=== PATIENT | male | born 1955 | race African-American/Black ===

== ENCOUNTER 2022-03-26 16:54 | Emergency (ER) | payer MEDICARE, SELFPAY ==
[2022-03-26] VITALS (13 sets, daily range): BP systolic 120–150; BP diastolic 77–89; PULSE 62–100; RESP 13–31; TEMP 37.2; O2SAT 90–98
--- NOTE | ~2022-03-26 | XR_ITS ---
EXAMINATION: XR chest 1V portable INDICATION: Cough and fever TECHNIQUE: Portable AP chest at 1831 hours COMPARISON: None available FINDINGS: There are minimal airspace opacities of the left lung base. No pleural effusion or pneumoth orax. The cardiomediastinal silhouette is normal. IMPRESSION: 1. Interval left basilar airspace opacity, consistent with atelectasis versus pneumonia. Reviewed, dictated and finalized at location [facility] IMPRESSION: 1. Interval left basilar airspace opacity, consistent with atelectasis versus p neumonia.
[2022-03-26 17:52] LABS: Influenza A QL RT-PCR Positive (Negative); Influenza B QL RT-PCR Negative (Negative); SARS-CoV-2 RNA PCR Negative
[2022-03-26 20:08] LABS: Basophils Absolute Auto 0.1 K/mm3 (0.0-0.1); Basophils Percent Auto 1.1 % (0.2-1.2); Eosinophils Percent Auto 0.5 % (0-4.4); Hematocrit 42.6 % (42.0-52.0); Hemoglobin 14.7 g/dL (14.0-18.0); Immature Granulocyte Absolute 0.01 K/mm3 (0.00-0.031); Immature Granulocyte Percent A 0.2 % (0-0.5); Lymphocytes Absolute Auto 0.36 K/mm3 (0.9-3.2); Lymphocytes Percent Auto 8.2 % (18.3-44.2); Mean Corpuscular HGB Conc 34.5 g/dl (32-36); Mean Corpuscular Hemoglobin 30.3 pg (26-34); Mean Corpuscular Volume 87.8 fl (80-100); Mean Platelet Volume 10.5 fl (7.4-10.4); Monocytes Absolute Auto 0.4 K/mm3 (0.1-0.6); Monocytes Percent Auto 8.7 % (2.6-8.5); Neutrophils Absolute Auto 3.6 K/mm3 (1.3-6.7); Neutrophils Percent Auto 81.3 % (45.5-73.1); Platelet Count Result 178 k/mm3 (150-375); Red Blood Count 4.85 M/mm3 (4.6-6.20); Red Cell Distribution Width 12.9 % (11.5-14.5); White Blood Count 4.4 K/mm3 (4.5-10.0)
--- NOTE | 2022-03-26 20:21 | ED.FEVER ---
HPI - Fever General Chief Complaint: Fever Stated Complaint: fever, fatigue Time Seen by Provider: 03/26/22 18:29 Source: patient Mode of arrival: ambulatory History of Present Illness HPI Narrative: 66-year-old male with history of bronchitis and hypertension presents today with complaints of fever and malaise. Patient denies any other symptoms except for a dry cough every once while. He states he feels okay except for he is super tired. Patient denies congestion, sore throat, nausea, vomiting but did start with some diarrhea since he has been here. Patient denies any known sick contacts. Patient's states patient with fever of 101 at home. Related Data Allergies Allergy/AdvReac Type Severity Reaction Status Date / Time acetaminophen [From Percocet] Allergy Rash Verified 03/26/22 18:35 oxycodone [From Percocet] Allergy Rash Verified 03/26/22 18:35 Review of Systems Review of Systems: CONSTITUTIONAL: Denies fever, chills, or sweats. Positive for malaise ENT: Denies rhinorrhea, congestion, sore throat, or otalgia. CARDIOVASCULAR: Denies chest pain, palpitations, or edema. RESPIRATORY: Denies cough or dyspnea. GASTROINTESTINAL: Denies abdominal pain, nausea, vomiting. Diarrhea since coming to the ER. GENITOURINARY: Denies dysuria or hematuria. SKIN: Denies rash or itching. MUSCULOSKELETAL: Denies back pain, joint pain, or myalgia. NEUROLOGIC: Denies headache, numbness, dizziness, or weakness. [facility] Family History Family History (Updated 05/27/18 @ 09:30 by DOCTOR UNKNOWN) Sibling Family history of malignant neoplasm Mother Family history of congestive heart failure Social History Social History Smoking status: Never smoker Alcohol intake: never Course Reevaluation(s) Reevaluation #1: Patient's oxygen level 94% on room air after DuoNeb. Patient states he is feeling better. Patient wants to go home. Will discharge patient home plan follow-up with primary if needed and return with any new or worsening concerns. Date: 03/26/22 Time: 22:45 Vital Signs Vital signs: Vital Signs Temperature 99.0 F 03/26/22 17:00 Pulse Rate 78 03/26/22 17:00 Respiratory Rate 18 03/26/22 17:00 Blood Pressure 150/77 H 03/26/22 17:00 Pulse Oximetry 94 03/26/22 17:00 Oxygen Delivery Room Air 03/26/22 17:00 Temperature 99.0 F 03/26/22 17:00 Pulse Rate 75 03/26/22 21:00 Respiratory Rate 17 03/26/22 21:00 Blood Pressure 149/79 H 03/26/22 20:30 Pulse Oximetry 90 03/26/22 20:30 Oxygen Delivery Room Air 03/26/22 18:33 MDM - Fever MDM Narrative Medical decision making narrative: 66-year-old male HPI as noted. Differentials include pneumonia, influenza, COVID, fever. Patient's influenza positive. Chest x-ray shows possible pneumonia. Suspect viral pneumonia. CMP without concerning findings. CBC white count 4.4. Oxygen level 90 to 92% on room air prior to DuoNeb. After DuoNeb room air sat 94%. Patient feeling well and would like to be discharged home. Patient to be discharged home plan follow-up with primary care. Return with any new or worsening symptoms. Lab Data Attestation: I reviewed the patient's lab results. Result diagrams: 03/26/22 19:47 03/26/22 19:47 Labs: Lab Results 03/26/22 03/26/22 03/26/22 Range/Units 17:08 19:47 19:47 WBC 4.4 L (4.5-10.0) K/mm3 RBC 4.85 (4.6-6.20) M/mm3 Hgb 14.7 (14.0-18.0) g/dL Hct 42.6 (42.0-52.0) % MCV 87.8 (80-100) fl MCH 30.3 (26-34) pg MCHC 34.5 (32-36) g/dl RDW 12.9 (11.5-14.5) % Plt Count 178 (150-375) k/mm3 MPV 10.5 H (7.4-10.4) fl Immature Gran % (Auto) 0.2 (0-0.5) % Neut % (Auto) 81.3 H (45.5-73.1) % Lymph % (Auto) 8.2 L (18.3-44.2) % Isabella % (Auto) 8.7 H (2.6-8.5) % Eos % (Auto) 0.5 (0-4.4) % Baso % (Auto) 1.1 (0.2-1.2) % Lymph # (Auto) 0.36 L (0.9-3.2) K/mm3 Isabella # (Auto) 0.4 (0.1-0.6) K/mm3 E
[2022-03-26 20:22] LABS: Alanine Aminotransferase 34 U/L (6-50); Albumin Level 4.2 g/dL (3.5-5.1); Alkaline Phosphatase 94 U/L (38-126); Aspartate Amino Transferase 43 U/L (17-59); Bilirubin,Total 0.6 mg/dL (0.2-1.3); Blood Urea Nitrogen 12 mg/dL (9-20); Carbon Dioxide 26 mmol/L (22-30); Chloride 102 mmol/L (98-107); Estimated CRCL calculation 78 ml/min; Estimated Glomerular Filt Rate > 60; Glucose 98 mg/dL (65-110); Potassium 3.6 mmol/L (3.4-5.0)
[2022-03-26] MEDS: ACETAMINOPHEN 500 MG TABLET 1000 MG PO (20:32)
[2022-03-26 20:34] LABS: Anion Gap 12 mmol/L (8-16); Sodium 140 mmol/L (137-145)
[2022-03-26] MEDS: ALBUTEROL SULFATE NEB 2.5 MG/3 ML INH 5 MG INHALATION (21:45)
[2022-03-26] MEDS: IPRATROPIUM BR 0.02% INH SOLN 0.5 MG/2.5 ML VIAL INHALATION (21:46)
[2022-03-26] MEDS: OSELTAMIVIR PHOSPHATE 75 MG CAPSULE PO (21:51)
== END 2022-03-26 23:07 | disposition home or self-care (01) ==
PROVIDERS: Emergency Medicine; Emergency Provider Nurse Practitioner Family; PCP Internal Medicine
DX: J10.1 Influenza due to other identified influenza virus with other respiratory manifestations (principal); Z20.822 Contact with and (suspected) exposure to COVID-19; R91.8 Other nonspecific abnormal finding of lung field
CPT/HCPCS: 36415; 71045; 80053; 85025; 87502; 94640; 99284; A9270; U0003; U0005